=== PATIENT | male | born 1980 | race Caucasian/White ===

== ENCOUNTER 2018-05-08 18:06 | Emergency (ER) | payer SELFPAY ==
[~2018-05-08] VITALS: Ht 170.2 cm; Wt 73.0 kg
[2018-05-09 00:27] LABS: ETHANOL BLOOD 260 mg/dL
[2018-05-09 04:50] VITALS: BP 138/75
== END 2018-05-09 05:16 | disposition home or self-care (01) ==
LOC: ER 19:00
DX: G92 Toxic encephalopathy (principal); T51.0X1A Toxic effect of ethanol, accidental (unintentional), initial encounter; F10.229 Alcohol dependence with intoxication, unspecified; Y90.8 Blood alcohol level of 240 mg/100 ml or more
CPT/HCPCS: 36415; 82947; 99284; G0482; J7030; Z7610